=== PATIENT | male | born 1945 | race Caucasian/White ===

== ENCOUNTER 2017-01-31 10:54 | Day surgery (SDC) | payer OTHER ==
[~2017-01-31] VITALS: Ht 177.8 cm; Wt 105.0 kg
[~2017-01-31 10:54] MED LIST: ANTIBIOTIC OINTMENT; ASPIRIN325 MG PO; Augmentin PO; BENICAR HCT 401 EACH PO; BUSPAR5 MG PO; BUSPIRONE HCL5 MG PO; CARDIZEM CD120 MG PO; CYANOCOBALAM1000 MCG PO; EFFEXOR XR150 MG PO; FERROUS SULFAT325 MG PO; GABAPENTIN300 MG PO; GLIPIZIDE ER2.5 MG PO; GLIPIZIDE XL5 MG PO; GLIPIZIDE5 MG PO; GLUCOTROL10 MG PO; HYDROCODON-ACE1 EAC7 PO; IMODIUM A-1 MG/7.5 M PO; JANUVIA25 M1 PO; LABETALOL HCL100 MG PO; LEVEMIR FL100 UNIT/1 SC; LOMOTIL TABLET1 EACH PO; LOVASTATIN20 MG PO; METFORMIN HCL500 M1 PO; METFORMIN HCL500 MG PO; NORCO 5/3251 TABLET PO; NORVASC5 MG PO; OMEPRAZOLE40 M1 PO; PSORIASIS MED; RECTICARE30 GM TP; TACLONEX OINTME60 GM TP; TRIAMCINOLONE A15 G1 TP; TRICOR48 MG PO; ULTRAM50 MG PO; VENLAFAXINE HC150 MG PO; VENLAFAXINE HCL75 M3 PO; VITAMIN D31000 UNI2 PO; VITAMIN E400 UNIT PO
[2017-01-31 12:08] LABS: POINT-OF-CARE METER ID UU14174212
[2017-01-31] MEDS ORDERED: DOXYCYCLINE HY100 MG PO (12:12)
[2017-01-31 12:24] VITALS: BP 104/60
[2017-01-31 15:18] LABS: POINT-OF-CARE METER ID UU13113675; POINT-OF-CARE USER ID 515036437
[2017-01-31 15:35] VITALS: BP 127/70
[2017-01-31 17:09] VITALS: BP 117/58
== END 2017-01-31 17:25 | disposition home or self-care (01) ==
LOC: SDC 10:54
PROVIDERS: Podiatrist Foot & Ankle Surgery
DX: G89.29 Other chronic pain (principal); M77.41 Metatarsalgia, right foot; M77.42 Metatarsalgia, left foot; E11.621 Type 2 diabetes mellitus with foot ulcer; L97.519 Non-pressure chronic ulcer of other part of right foot with unspecified severity; L97.529 Non-pressure chronic ulcer of other part of left foot with unspecified severity; E11.42 Type 2 diabetes mellitus with diabetic polyneuropathy; Z85.038 Personal history of other malignant neoplasm of large intestine; Z85.46 Personal history of malignant neoplasm of prostate; E78.00 Pure hypercholesterolemia, unspecified; E66.01 Morbid (severe) obesity due to excess calories; Z68.33 Body mass index [BMI] 33.0-33.9, adult; L40.9 Psoriasis, unspecified; E11.65 Type 2 diabetes mellitus with hyperglycemia; Z87.891 Personal history of nicotine dependence; Z79.82 Long term (current) use of aspirin; Z91.041 Radiographic dye allergy status; Z88.1 Allergy status to other antibiotic agents; Z88.8 Allergy status to other drugs, medicaments and biological substances
CPT/HCPCS: 82948; J2250; J2405; J3010; S0020

== ENCOUNTER 2017-03-28 22:14 | Emergency (ER) | payer OTHER ==
[~2017-03-28] VITALS: Ht 177.8 cm; Wt 105.8 kg
[~2017-03-28 22:14] MED LIST changes: +DOXYCYCLINE HY100 MG PO
[2017-03-28] MEDS ORDERED: PREDNISONE20 MG PO (23:00)
[2017-03-28] MEDS ORDERED: CLEOCIN300 MG PO (23:00)
[2017-03-28 23:19] VITALS: BP 153/80
== END 2017-03-28 23:19 | disposition home or self-care (01) ==
LOC: EME 22:14 → EXP 22:14
DX: R21 Rash and other nonspecific skin eruption (principal); I10 Essential (primary) hypertension; E78.5 Hyperlipidemia, unspecified; E11.9 Type 2 diabetes mellitus without complications; Z79.84 Long term (current) use of oral hypoglycemic drugs; F17.200 Nicotine dependence, unspecified, uncomplicated
CPT/HCPCS: 99281; 99283; J7512

== ENCOUNTER 2017-07-17 05:29 | Emergency (ER) | payer OTHER ==
[~2017-07-17] VITALS: Ht 177.8 cm; Wt 105.0 kg
[~2017-07-17 05:29] MED LIST changes: +CLEOCIN300 MG PO; +PREDNISONE20 MG PO
[2017-07-17] MEDS ORDERED: PERCOCET 5/31 TABLET PO (09:13)
[2017-07-17 09:54] VITALS: BP 132/70
== END 2017-07-17 09:56 | disposition home or self-care (01) ==
LOC: EME 05:29
DX: S40.011A Contusion of right shoulder, initial encounter (principal); M25.551 Pain in right hip; W01.198A Fall on same level from slipping, tripping and stumbling with subsequent striking against other object, initial encounter; Y93.01 Activity, walking, marching and hiking; Y92.002 Bathroom of unspecified non-institutional (private) residence as the place of occurrence of the external cause; E11.9 Type 2 diabetes mellitus without complications; I10 Essential (primary) hypertension; E78.5 Hyperlipidemia, unspecified; Z79.84 Long term (current) use of oral hypoglycemic drugs; Z85.038 Personal history of other malignant neoplasm of large intestine; Z96.651 Presence of right artificial knee joint; F17.200 Nicotine dependence, unspecified, uncomplicated; Z88.1 Allergy status to other antibiotic agents; Z88.8 Allergy status to other drugs, medicaments and biological substances
CPT/HCPCS: 73030; 73502; 99281; 99284; J2270

== ENCOUNTER 2017-12-15 21:20 | Inpatient (IN) | payer OTHER ==
[~2017-12-15] VITALS: Ht 177.8 cm; Wt 104.5 kg
[~2017-12-15 21:20] MED LIST changes: +BENICAR40 MG PO; +EFFEXOR75 MG PO; +GLUCOTROL XL5 MG PO; -GLUCOTROL10 MG PO; +JANUVIA100 MG PO; -JANUVIA25 M1 PO; +NORVASC10 MG PO; +PERCOCET 5/31 TABLET PO
[2017-12-15 22:02] LABS: HEMATOCRIT 41.9 % (38.0-50.0); HEMOGLOBIN 13.6 G/DL (12.5-16.6); MCHC 32.5 G/DL (30.0-36.0); MCV 86.2 FL (86-99); PLATELET COUNT 247 K/uL (156-360); RBC DIS.WIDTH-SD 40.7 % (39-53); RED BLOOD COUNT 4.86 M/uL (4.00-5.50); WHITE BLOOD COUNT 8.6 K/uL (4.1-10.2)
[2017-12-15 22:12] LABS: CHLORIDE 97 mEq/L (99-109); POTASSIUM 4.6 mEq/L (3.7-5.4); SODIUM 136 mEq/L (136-147)
[2017-12-15 22:14] LABS: GLUCOSE 334 mg/dL (70-99)
[2017-12-15 22:18] LABS: CREATININE 1.3 mg/dL (0.6-1.3); GFR ESTIMATE (CALCULATED) 57 mL/min/ (58.99-99999)
[2017-12-15 22:19] LABS: UREA NITROGEN (BUN) 23 mg/dL (9-23)
[2017-12-15 22:23] LABS: TROP-I INTERPRETATION NEGATIVE; TROPONIN-I 0.04 ng/mL (0.0-0.30)
[2017-12-16 04:07] LABS: INTER. NORMALIZED RATIO 1.1
[2017-12-16 04:10] LABS: PTT 31.1 SEC (25-37)
[2017-12-16 07:48] LABS: TROP-I INTERPRETATION NEGATIVE; TROPONIN-I 0.04 ng/mL (0.0-0.30)
[2017-12-16 08:23] VITALS: BP 123/57
[2017-12-16 10:53] LABS: INTER. NORMALIZED RATIO 1.1
[2017-12-16 10:55] LABS: PTT 41.2 SEC (25-37)
[2017-12-16] MEDS ORDERED: VENTOLIN HFA18 GM IH (11:23)
[2017-12-16] MEDS ORDERED: GABAPENTIN300 MG PO (11:23)
[2017-12-16 13:38] LABS: ALBUMIN 3.4 G/DL (3.2-4.8); CHLORIDE 100 MEQ/L (99-109); MAGNESIUM 1.7 mg/dl (1.3-2.7); POTASSIUM 3.8 MEQ/L (3.7-5.4); SODIUM 137 MEQ/L (136-147); TOTAL BILIRUBIN 0.4 MG/DL (0.0-1.0)
[2017-12-16 13:44] LABS: ALKALINE PHOSPHATASE 74 IU/L (3-129); ALT (GPT) 12 IU/L (3-49); AST (GOT) 14 IU/L (2-34); CREATININE 0.9 MG/DL (0.6-1.3); GFR ESTIMATE (CALCULATED) > 59 mL/min/ (58.99-99999); GLUCOSE 274 mg/dL (70-99); TOTAL PROTEIN 6.4 G/DL (6.4-8.3); UREA NITROGEN (BUN) 22 mg/dL (9-23)
[2017-12-16 16:18] VITALS: BP 121/66
[2017-12-16 20:22] VITALS: BP 108/58
[2017-12-16 23:08] VITALS: BP 99/57
[2017-12-17] VITALS (7 sets, daily range): BP systolic 100–129; BP diastolic 53–87
[2017-12-17 06:54] LABS: CHLORIDE 97 MEQ/L (99-109); CREATININE 1.3 MG/DL (0.6-1.3); GFR ESTIMATE (CALCULATED) 57 mL/min/ (58.99-99999); GLUCOSE 239 mg/dL (70-99); POTASSIUM 4.1 MEQ/L (3.7-5.4); SODIUM 136 MEQ/L (136-147); UREA NITROGEN (BUN) 30 mg/dL (9-23)
[2017-12-17 07:15] LABS: HEMATOCRIT 33.8 % (38.0-50.0); MCH 28.3 PG (29.0-34.0); MCHC 32.5 G/DL (30.0-36.0); MCV 86.9 FL (86-99); PLATELET COUNT 221 K/uL (156-360); RBC DIS.WIDTH-CV 13.2 % (11.8-14.6); RBC DIS.WIDTH-SD 41.6 % (39-53); RED BLOOD COUNT 3.89 M/uL (4.00-5.50); WHITE BLOOD COUNT 8.5 K/uL (4.1-10.2)
[2017-12-17 07:23] LABS: THYROTROPIN (TSH) 0.23 MIU/L (0.4-5.5)
[2017-12-17] MEDS ORDERED: ELIQUIS5 MG PO (15:07)
[2017-12-18 04:32] VITALS: BP 112/59
[2017-12-18 09:06] VITALS: BP 117/65
[2017-12-18] MEDS ORDERED: ENTRESTO 24 MG1 EACH PO (12:02)
[2017-12-18] MEDS ORDERED: LEVEMIR FL100 UNIT/1 SC (12:02)
[2017-12-18] MEDS ORDERED: SPIRIVA RESPIMAT4 GM IH (12:02)
[2017-12-18] MEDS ORDERED: CARVEDILOL6.25 MG PO (12:40)
[2017-12-18] MEDS ORDERED: PRAVASTATIN SOD40 MG PO (12:40)
[2017-12-18] MEDS ORDERED: GLIPIZIDE10 MG PO (12:41)
[2017-12-18] MEDS ORDERED: FUROSEMIDE40 MG PO (12:41)
[2017-12-18 12:45] VITALS: BP 112/67
[2017-12-18] MEDS ORDERED: SPIRIVA18 MCG IH (16:33)
== END 2017-12-18 16:41 | disposition home or self-care (01) | DRG 175 ==
LOC: EME 21:20 → 5SOUTH 12-16 05:11 → EDOF 12-16 05:11 → ENRESERV 12-16 05:19 → 5SOUTH 12-16 07:13 → ENPENDDIS 12-18 14:09 → 5SOUTH 12-18 16:41
PROVIDERS: Emergency Medicine; Hospitalist
DX: I26.99 Other pulmonary embolism without acute cor pulmonale (principal); I11.0 Hypertensive heart disease with heart failure; J18.9 Pneumonia, unspecified organism; J43.9 Emphysema, unspecified; R00.0 Tachycardia, unspecified; I50.21 Acute systolic (congestive) heart failure; E11.65 Type 2 diabetes mellitus with hyperglycemia; K21.9 Gastro-esophageal reflux disease without esophagitis; L40.9 Psoriasis, unspecified; J44.9 Chronic obstructive pulmonary disease, unspecified; E78.5 Hyperlipidemia, unspecified; F41.9 Anxiety disorder, unspecified; Z66 Do not resuscitate; E66.01 Morbid (severe) obesity due to excess calories; I48.1 Persistent atrial fibrillation; Z96.651 Presence of right artificial knee joint; Z82.49 Family history of ischemic heart disease and other diseases of the circulatory system; Z80.0 Family history of malignant neoplasm of digestive organs; Z79.899 Other long term (current) drug therapy; Z79.82 Long term (current) use of aspirin; Z87.891 Personal history of nicotine dependence; Z92.21 Personal history of antineoplastic chemotherapy; Z98.890 Other specified postprocedural states; Z85.038 Personal history of other malignant neoplasm of large intestine; Z79.84 Long term (current) use of oral hypoglycemic drugs; Z68.33 Body mass index [BMI] 33.0-33.9, adult; I42.0 Dilated cardiomyopathy
CPT/HCPCS: 71046; 71275; 80048; 80053; 82948; 83735; 83880; 84443; 84484; 85027; 85379; 85610; 85730; 90686; 93005; 93306; 93970; 94640; 94640 76; 94799; 99202; 99281; 99285; J0456; J1815; J1940; J2920; J3475

== ENCOUNTER 2018-06-30 09:16 | Inpatient (IN) | payer OTHER ==
[~2018-06-30] VITALS: Ht 177.8 cm; Wt 109.0 kg
[~2018-06-30 09:16] MED LIST changes: +CARVEDILOL6.25 MG PO; +ELIQUIS5 MG PO; +ENTRESTO 24 MG1 EACH PO; +FUROSEMIDE40 MG PO; +GLIPIZIDE10 MG PO; +PRAVASTATIN SOD40 MG PO; +SPIRIVA RESPIMAT4 GM IH; +SPIRIVA18 MCG IH; +VENTOLIN HFA18 GM IH
[2018-06-30 10:52] LABS: HEMATOCRIT 35.8 % (38.0-50.0); HEMOGLOBIN 11.8 G/DL (12.5-16.6); MCH 29.1 PG (29.0-34.0); MCV 88.2 FL (86-99); PLATELET COUNT 187 K/uL (156-360); RBC DIS.WIDTH-CV 13.2 % (11.8-14.6); RBC DIS.WIDTH-SD 43.4 % (39-53); RED BLOOD COUNT 4.06 M/uL (4.00-5.50); WHITE BLOOD COUNT 7.5 K/uL (4.1-10.2)
[2018-06-30 10:59] LABS: INTER. NORMALIZED RATIO 1.4
[2018-06-30 11:00] LABS: ALBUMIN 3.5 g/dL (3.2-4.8)
[2018-06-30 11:01] LABS: CHLORIDE 104 mEq/L (99-109); PTT 39.7 SEC (25-37); SODIUM 140 mEq/L (136-147)
[2018-06-30 11:03] LABS: GLUCOSE 92 mg/dL (70-99); TOTAL PROTEIN 6.5 g/dL (6.4-8.3)
[2018-06-30 11:05] LABS: TOTAL BILIRUBIN 0.4 mg/dL (0.0-1.0)
[2018-06-30 11:06] LABS: ALKALINE PHOSPHATASE 80 IU/L (3-129)
[2018-06-30 11:07] LABS: GFR ESTIMATE (CALCULATED) > 59 mL/min/ (58.99-99999)
[2018-06-30 11:08] LABS: AST (GOT) 15 IU/L (2-34); UREA NITROGEN (BUN) 24 mg/dL (9-23)
[2018-06-30 11:09] LABS: ALT (GPT) 22 IU/L (3-49)
[2018-06-30 11:10] LABS: LIPASE 24 U/L (1.0-51.0)
[2018-06-30 11:12] LABS: TROP-I INTERPRETATION NEGATIVE; TROPONIN-I < 0.01 ng/mL (0.0-0.30)
[2018-06-30] MEDS ORDERED: CLARITIN10 MG PO (13:09)
[2018-06-30] MEDS ORDERED: TRESIBA FL100 UNIT/1 SC (13:10)
[2018-06-30] MEDS ORDERED: TRAZODONE HCL50 MG PO (13:11)
[2018-06-30] MEDS ORDERED: ULTRAM50 MG PO (13:12)
[2018-06-30] MEDS ORDERED: ENTRESTO 49 MG1 EACH PO (13:18)
[2018-06-30] MEDS ORDERED: LOVASTATIN40 MG PO (13:20)
[2018-06-30] MEDS ORDERED: COREG6.25 M1 PO (13:22)
[2018-06-30] MEDS ORDERED: LASIX20 MG PO (13:23)
[2018-06-30] MEDS ORDERED: GLUCOTROL XL10 MG PO (13:25)
[2018-06-30 13:27] LABS: HDL CHOLESTEROL 46 MG/DL (Desirable>=40); LDL CHOLESTEROL 59 mg/dL (Desirable<100); NON-HDL CHOLESTEROL 81 mg/dL (Desirable<160); TOTAL CHOLESTEROL 127 mg/dL (Desirable<200); TRIGLYCERIDES 112 MG/DL (Normal: <150)
[2018-06-30 14:41] VITALS: BP 169/82
[2018-06-30 17:40] LABS: TROP-I INTERPRETATION NEGATIVE; TROPONIN-I 0.01 ng/mL (0.0-0.30)
[2018-06-30 19:34] VITALS: BP 176/90
[2018-06-30 23:28] LABS: TROP-I INTERPRETATION NEGATIVE; TROPONIN-I 0.02 ng/mL (0.0-0.30)
[2018-06-30 23:37] VITALS: BP 175/94
[2018-07-01 05:14] VITALS: BP 170/79
[2018-07-01 05:36] LABS: HEMOGLOBIN 11.9 G/DL (12.5-16.6); MCH 28.1 PG (29.0-34.0); MCHC 32.2 G/DL (30.0-36.0); MCV 87.5 FL (86-99); PLATELET COUNT 199 K/uL (156-360); RBC DIS.WIDTH-CV 13.2 % (11.8-14.6); RBC DIS.WIDTH-SD 42.5 % (39-53); RED BLOOD COUNT 4.23 M/uL (4.00-5.50); WHITE BLOOD COUNT 8.6 K/uL (4.1-10.2)
[2018-07-01 06:01] LABS: CHLORIDE 103 MEQ/L (99-109); CREATININE 1.1 MG/DL (0.6-1.3); GFR ESTIMATE (CALCULATED) > 59 mL/min/ (58.99-99999); GLUCOSE 86 mg/dL (70-99); POTASSIUM 3.5 MEQ/L (3.7-5.4); SODIUM 140 MEQ/L (136-147); UREA NITROGEN (BUN) 21 mg/dL (9-23)
[2018-07-01 07:39] VITALS: BP 143/69
[2018-07-01 10:44] LABS: HEMOGLOBIN A1c (GLYCOHEMOGLOB) 5.8 % (Below 5.7)
[2018-07-01] MEDS ORDERED: LASIX20 MG PO (11:37)
[2018-07-01 11:46] VITALS: BP 165/77
[2018-07-01 12:30] VITALS: BP 153/74
[2018-07-01 19:51] VITALS: BP 164/77
[2018-07-02] VITALS: BP 174/81
[2018-07-02 03:47] VITALS: BP 105/57
[2018-07-02 06:00] LABS: BASOPHIL (%) 0.4 % (0-1); EOSINOPHIL (%) 1.3 % (0-5); EOSINOPHIL COUNT 0.1 K/uL (0-0.3); HEMATOCRIT 36.8 % (38.0-50.0); HEMOGLOBIN 11.9 G/DL (12.5-16.6); IMMATURE GRANULOCYTE (%) 0.3 % (0.0-0.7); LYMPHOCYTE (%) 11.9 % (15-42); LYMPHOCYTE COUNT 0.9 K/uL (1.0-2.8); MCH 28.4 PG (29.0-34.0); MCHC 32.3 G/DL (30.0-36.0); MCV 87.8 FL (86-99); MONOCYTE (%) 12.2 % (3-12); MONOCYTE COUNT 0.9 K/uL (0-0.8); NEUTROPHIL (%) 73.9 % (45-76); NEUTROPHIL COUNT 5.3 K/uL (1.8-6.4); PLATELET COUNT 191 K/uL (156-360); RBC DIS.WIDTH-CV 13.5 % (11.8-14.6); RBC DIS.WIDTH-SD 43.4 % (39-53); RED BLOOD COUNT 4.19 M/uL (4.00-5.50); WHITE BLOOD COUNT 7.2 K/uL (4.1-10.2)
[2018-07-02 06:12] LABS: CHLORIDE 103 MEQ/L (99-109); CREATININE 1.1 MG/DL (0.6-1.3); GFR ESTIMATE (CALCULATED) > 59 mL/min/ (58.99-99999); POTASSIUM 4.1 MEQ/L (3.7-5.4); SODIUM 141 MEQ/L (136-147); UREA NITROGEN (BUN) 20 mg/dL (9-23)
[2018-07-02 06:16] LABS: GLUCOSE 133 mg/dL (70-99)
[2018-07-02 09:00] VITALS: BP 143/72
[2018-07-02 11:21] VITALS: BP 140/68
[2018-07-02] MEDS ORDERED: NITROSTAT0.4 MG SL (12:49)
[2018-07-02] MEDS ORDERED: ASPIR-LOW81 MG PO (12:49)
[2018-07-02] MEDS ORDERED: CLOPIDOGREL75 MG PO (12:49)
== END 2018-07-02 16:00 | disposition home or self-care (01) | DRG 247 ==
LOC: EME 09:16 → EDOF 11:59 → 4SOUTH 11:59 → EDOF 11:59 → CANRESERV 12:00 → ENRESERV 12:00 → 4SOUTH 14:03 → 4EAST 07-01 09:36 → 4SOUTH 07-01 09:36 → ENRESERV 07-01 09:37 → 4SOUTH 07-01 10:12 → 4EAST 07-01 11:11
PROVIDERS: Hospitalist; Nurse Practitioner Family
PROC: 027034Z Dilation of Coronary Artery, One Artery with Drug-eluting Intraluminal Device, Percutaneous Approach (ICD-10-PCS; principal; 2018-06-30)
PROC: B2111ZZ Fluoroscopy of Multiple Coronary Arteries using Low Osmolar Contrast (ICD-10-PCS; principal; 2018-06-30)
PROC: B2151ZZ Fluoroscopy of Left Heart using Low Osmolar Contrast (ICD-10-PCS; principal; 2018-06-30)
DX: I25.119 Atherosclerotic heart disease of native coronary artery with unspecified angina pectoris (principal); I50.9 Heart failure, unspecified; I11.0 Hypertensive heart disease with heart failure; I48.0 Paroxysmal atrial fibrillation; I42.0 Dilated cardiomyopathy; E78.5 Hyperlipidemia, unspecified; I25.2 Old myocardial infarction; I27.20 Pulmonary hypertension, unspecified; Z82.49 Family history of ischemic heart disease and other diseases of the circulatory system; Z87.891 Personal history of nicotine dependence; Z85.038 Personal history of other malignant neoplasm of large intestine; I25.5 Ischemic cardiomyopathy; Z79.4 Long term (current) use of insulin; Z79.01 Long term (current) use of anticoagulants; E11.9 Type 2 diabetes mellitus without complications; Z79.899 Other long term (current) drug therapy; L40.9 Psoriasis, unspecified
CPT/HCPCS: 71046; 80048; 80053; 80061; 82948; 83036; 83690; 84484; 85025; 85027; 85347; 85610; 85730; 93005; 99281; 99284; C1725; C1769; C1874; C1887; G0378; J0360; J1644; J1815; J2250; J3010; J7030